=== PATIENT | female | born 1995 | race Caucasian/White ===

== ENCOUNTER 2019-05-17 20:58 | Emergency (ER) | payer MEDICAID ==
[~2019-05-17] VITALS: Ht 170.2 cm; Wt 102.5 kg
[~2019-05-17 20:58] MED LIST: PREN-96 PO
[2019-05-17] MEDS ORDERED: ALBUTEROL SULF 2.5 MG/0.5ML(0.5%) NEB SOLN NEB ONE ×3 (21:30→22:15)
[2019-05-17] MEDS ORDERED: IPRATROPIUM BROM 0.5 MG/2.5ML INH SOL NEB ONE ×3 (21:30→22:15)
[2019-05-17] MEDS ORDERED: IPRATROPIUM BROM 0.5 MG/2.5ML INH SOL ONE (22:06)
[2019-05-17] MEDS ORDERED: ALBUTEROL SULF 2.5 MG/0.5ML(0.5%) NEB SOLN ONE (22:06)
[2019-05-17 22:24] VITALS: BP 136/81
[2019-05-17] MEDS ORDERED: DexAMETHasone SOD PHOS 10MG/1ML VIAL INJ IM ONE (22:30)
[2019-05-17] MEDS ORDERED: ACETAMINOPHEN/CODEINE#3 (300/30mg) TAB PO ONE (22:30)
== END 2019-05-17 22:57 | disposition home or self-care (01) ==
LOC: ER 20:58
DX: J06.9 Acute upper respiratory infection, unspecified (principal); Z77.22 Contact with and (suspected) exposure to environmental tobacco smoke (acute) (chronic); Z88.0 Allergy status to penicillin
CPT/HCPCS: 81025; 94640; 96372; 99284; J1100; J7611; J7644

== ENCOUNTER 2020-12-16 17:50 | Emergency (ER) | payer MEDICAID ==
[~2020-12-16] VITALS: Ht 170.2 cm; Wt 98.4 kg
[2020-12-16 17:50] VITALS: BP 145/67
== END 2020-12-16 22:04 | disposition left against medical advice (07) ==
LOC: ER 17:50
DX: M79.641 Pain in right hand (principal); Z53.21 Procedure and treatment not carried out due to patient leaving prior to being seen by health care provider

== ENCOUNTER → 2022-01-06 | Outpatient (CLI) | payer MEDICAID ==
[2022-01-06 07:56] LABS: Basophils # (auto) 0 10 ^3/uL (0-0.2); Basophils % (auto) 0.4 % (0.0-2.0); Eosinophils # (auto) 0.1 10 ^3/uL (0-0.8); Eosinophils % (auto) 0.9 % (0.0-7.0); Hemoglobin 14.2 g/dL (12.2-16.2); Lymphocytes # (auto) 1.7 10 ^3/uL (0.4-5.4); Lymphocytes % (auto) 26.8 % (10.0-50.0); Mean Corpuscular Hemoglobin 29.8 pg (28.0-32.0); Mean Corpuscular Volume 87.7 fL (80.0-100.0); Monocytes # (auto) 0.4 10 ^3/uL (0-1.3); Monocytes % (auto) 6.1 % (0.0-12.0); Neutrophils # (auto) 4.1 10 ^3/uL (1.6-8.6); Neutrophils % (auto) 65.8 % (37.0-80.0); Red Blood Cells 4.78 10^6/uL (4.0-5.20); Red Cell Distribution Width 12.9 % (11.8-14.3); White Blood Cell 6.2 10^3/uL (4.4-10.8)
[2022-01-06 08:34] LABS: Alcohol, Urine < 3.0 mg/dL (0-10); Amphetamine Screen, Urine NEGATIVE (NEGATIVE); Barbiturate Scree,Urine NEGATIVE (NEGATIVE); Benzodiazephine Screen, Urine NEGATIVE (NEGATIVE); Cannabinoid Screen, Urine POSITIVE (NEGATIVE); Cocaine Screen, Urine NEGATIVE (NEGATIVE); Opiate Scree,Urine NEGATIVE (NEGATIVE); Phencyclidine Screen, Urine NEGATIVE (NEGATIVE)
[2022-01-07 07:07] LABS: RPR Non Reactive (Non Reactive)
== END | disposition home or self-care (01) ==
LOC: LAB 06:47
PROVIDERS: ATTEND Obstetrics & Gynecology
DX: Z34.80 Encounter for supervision of other normal pregnancy, unspecified trimester (principal); Z31.430 Encounter of female for testing for genetic disease carrier status for procreative management; Z20.01 Contact with and (suspected) exposure to intestinal infectious diseases due to Escherichia coli (E. coli); N39.0 Urinary tract infection, site not specified
CPT/HCPCS: 36415; 80307; 81025; 82951; 83036; 84112; 84144; 84702; 85025; 86592; 86703; 86762; 86850; 86900; 86901; 87086; 87340

== ENCOUNTER 2022-02-06 14:07 | Emergency (ER) | payer MEDICAID ==
[~2022-02-06] VITALS: Ht 170.2 cm; Wt 106.0 kg
[2022-02-06 15:52] LABS: Basophils # (auto) 0.1 10 ^3/uL (0-0.2); Basophils % (auto) 0.6 % (0.0-2.0); Eosinophils # (auto) 0.1 10 ^3/uL (0-0.8); Eosinophils % (auto) 0.9 % (0.0-7.0); Hematocrit 42.2 % (36.0-46.0); Hemoglobin 14.4 g/dL (12.2-16.2); Lymphocytes # (auto) 2.1 10 ^3/uL (0.4-5.4); Lymphocytes % (auto) 25.6 % (10.0-50.0); Mean Corpuscular Hemoglobin 29.5 pg (28.0-32.0); Mean Corpuscular Hgb Conc. 34.2 g/dL (32.0-36.0); Mean Corpuscular Volume 86.4 fL (80.0-100.0); Monocytes # (auto) 0.4 10 ^3/uL (0-1.3); Monocytes % (auto) 5.4 % (0.0-12.0); Neutrophils # (auto) 5.5 10 ^3/uL (1.6-8.6); Neutrophils % (auto) 67.5 % (37.0-80.0); Red Blood Cells 4.88 10^6/uL (4.0-5.20); Red Cell Distribution Width 12.4 % (11.8-14.3); White Blood Cell 8.2 10^3/uL (4.4-10.8)
[2022-02-06 16:04] LABS: Urine Bacteria NONE SEEN /hpf (None Seen); Urine Blood 3+ /uL (Negative); Urine Mucus FEW (None Seen); Urine Specific Gravity 1.016 (1.001-1.035); Urine WBC 3 /hpf (0 - 5)
[2022-02-06 16:10] LABS: Albumin 3.2 g/dL (3.4-5.0); Calcium 8.6 mg/dL (8.5-10.1); Potassium 3.6 mmol/L (3.5-5.1)
[2022-02-06 16:13] LABS: BUN/Creatinine Ratio 10.7; Bilirubin, Total 0.4 mg/dL (0.2-1.0); Total Protein 6.7 g/dL (6.4-8.2)
[2022-02-06 16:49] LABS: INR 0.97 (0.9-1.15); Partial Thromboplastin Time 27.2 sec (24.6-33.4)
[2022-02-06 18:45] VITALS: BP 118/64
== END 2022-02-06 19:12 | disposition home or self-care (01) ==
LOC: ER 14:11
DX: O20.0 Threatened abortion (principal); Z90.49 Acquired absence of other specified parts of digestive tract; Z3A.11 11 weeks gestation of pregnancy; Z88.0 Allergy status to penicillin; Z90.710 Acquired absence of both cervix and uterus
CPT/HCPCS: 36415; 76801; 80053; 81001; 84702; 85025; 85610; 85730; 86850; 86900; 86901

== ENCOUNTER 2022-03-31 07:50 | Inpatient (IN) | payer MEDICAID ==
[~2022-03-31] VITALS: Ht 170.2 cm; Wt 103.4 kg
[2022-03-31] MEDS ORDERED: PROMETHAZINE HCL 25 MG/ML 1ML IV PRN (08:15)
[2022-03-31] MEDS ORDERED: BUTORPHANOL TARTRATE 2 MG/1 ML VIAL IV PRN ×2 (08:15)
[2022-03-31] MEDS ORDERED: DERMOPLAST 60ML BOTTLE TOP PRN (08:15)
[2022-03-31] MEDS ORDERED: WITCH HAZEL-GLYCERIN PAD TOP PRN (08:15)
[2022-03-31] MEDS ORDERED: LIDOCAINE 2%HCL (LOCAL ANESTH.) INJ 10ml MDV IJ PRN (08:15)
[2022-03-31] MEDS ORDERED: PHISODERM TOP SOLN 240ML BTL TOP PRN (08:15)
[2022-03-31 09:01] LABS: Basophils # (auto) 0 10 ^3/uL (0-0.2); Basophils % (auto) 0.5 % (0.0-2.0); Eosinophils # (auto) 0 10 ^3/uL (0-0.8); Eosinophils % (auto) 0.4 % (0.0-7.0); Hematocrit 39.1 % (36.0-46.0); Hemoglobin 13.6 g/dL (12.2-16.2); Lymphocytes # (auto) 1.9 10 ^3/uL (0.4-5.4); Lymphocytes % (auto) 23.4 % (10.0-50.0); Mean Corpuscular Hemoglobin 30.5 pg (28.0-32.0); Mean Corpuscular Hgb Conc. 34.9 g/dL (32.0-36.0); Mean Corpuscular Volume 87.5 fL (80.0-100.0); Monocytes # (auto) 0.4 10 ^3/uL (0-1.3); Monocytes % (auto) 4.4 % (0.0-12.0); Neutrophils # (auto) 5.8 10 ^3/uL (1.6-8.6); Neutrophils % (auto) 71.3 % (37.0-80.0); Red Blood Cells 4.47 10^6/uL (4.0-5.20); Red Cell Distribution Width 13.1 % (11.8-14.3); White Blood Cell 8.1 10^3/uL (4.4-10.8)
[2022-03-31 09:05] LABS: Urine Bacteria NONE SEEN /hpf (None Seen); Urine Blood Negative /uL (Negative); Urine Specific Gravity 1.019 (1.001-1.035); Urine WBC 1 /hpf (0 - 5)
[2022-03-31 09:11] LABS: Albumin 2.6 g/dL (3.4-5.0); Calcium 8.2 mg/dL (8.5-10.1); Potassium 3.6 mmol/L (3.5-5.1)
[2022-03-31 09:12] LABS: Alcohol, Urine < 3.0 mg/dL (0-10); Amphetamine Screen, Urine NEGATIVE (NEGATIVE); Barbiturate Scree,Urine NEGATIVE (NEGATIVE); Benzodiazephine Screen, Urine NEGATIVE (NEGATIVE); Cannabinoid Screen, Urine NEGATIVE (NEGATIVE); Cocaine Screen, Urine NEGATIVE (NEGATIVE); Opiate Scree,Urine NEGATIVE (NEGATIVE); Phencyclidine Screen, Urine NEGATIVE (NEGATIVE)
[2022-03-31 09:13] LABS: BUN/Creatinine Ratio 12.2
[2022-03-31 09:14] LABS: INR 0.97 (0.9-1.15); Partial Thromboplastin Time 26.5 sec (24.6-33.4)
[2022-03-31 09:22] LABS: Bilirubin, Total 0.5 mg/dL (0.2-1.0); Total Protein 6.2 g/dL (6.4-8.2)
[2022-03-31] MEDS: miSOPROStol 50 MCG per PRE-CUT 1/2 TAB PO PRN ×2 (12:09→16:00)
[2022-03-31] MEDS: LACTATED RINGER'S 1,000 ML IV SCH ×2 (12:09→16:57)
[2022-03-31] MEDS ORDERED: CLINDAMYCIN 900MG IV 50 ML IV SCH (16:00)
[2022-03-31] MEDS ORDERED: ceFAZolin 1GM/50ML 50 ML IV SCH (16:00)
[2022-03-31] MEDS ORDERED: LACT. RINGERS/OXYTOCIN 20UNITS 500 ML IV ONE ×2 (17:30→18:00)
[2022-03-31] MEDS ORDERED: LACT. RINGERS/OXYTOCIN 20UNITS 1,000 ML IV ONE (19:15)
[2022-03-31 23:00] VITALS: BP 128/68
[2022-03-31] MEDS ORDERED: ONDANSETRON ODT 4 MG TAB PO PRN (23:30)
[2022-03-31] MEDS ORDERED: ACETAMINOPHEN 325 MG TAB PO PRN (23:30)
[2022-03-31] MEDS: CLINDAMYCIN 900MG IV 50 ML IV SCH (23:40)
[2022-04-01] MEDS: LACTATED RINGER'S 1,000 ML IV SCH ×2 (00:15→08:15)
[2022-04-01 03:30] VITALS: BP 118/57
[2022-04-01] MEDS: IBUPROFEN 600 MG TAB PO PRN ×2 (03:46→11:22)
[2022-04-01 07:00] VITALS: BP 136/72
[2022-04-01] MEDS: CLINDAMYCIN 900MG IV 50 ML IV SCH (07:45)
[2022-04-01 08:06] LABS: RPR Non Reactive (Non Reactive)
[2022-04-01] MEDS ORDERED: CARBOPROST TROMETHAMINE 250 MCG/1ML VIAL IM ONE (09:21)
[2022-04-01] MEDS ORDERED: METHYLERGONOVINE MALEATE 0.2 MG/ML AMP IM ONE (09:21)
[2022-04-01 11:00] VITALS: BP 146/70
[2022-04-01 12:15] VITALS: BP 146/70
== END 2022-04-01 12:15 | disposition home or self-care (01) | DRG 560 ==
LOC: LDRP 07:50
PROVIDERS: ADMIT Obstetrics & Gynecology; ATTEND Obstetrics & Gynecology
PROC: 10E0XZZ Delivery of Products of Conception, External Approach (ICD-10-PCS; principal; 2022-03-31)
DX: O36.4XX0 Maternal care for intrauterine death, not applicable or unspecified (principal); Z37.1 Single stillbirth; Z20.822 Contact with and (suspected) exposure to COVID-19; Z3A.18 18 weeks gestation of pregnancy; Z88.0 Allergy status to penicillin
CPT/HCPCS: 36415; 59409; 76805; 80053; 80307; 81001; 81002; 82947; 85025; 85610; 85730; 86592; 86850; 86900; 86901; 87426; 94760; 96360; 96365; 96366; G0378; J2590; J3490

== ENCOUNTER → 2023-01-20 | Outpatient (CLI) | payer MEDICAID ==
[2023-01-22 12:06] LABS: QuantiFERON-TB Gold Plus Negative (Negative)
== END | disposition home or self-care (01) ==
LOC: LAB 11:10
PROVIDERS: ATTEND Obstetrics & Gynecology
DX: Z34.80 Encounter for supervision of other normal pregnancy, unspecified trimester (principal); N76.0 Acute vaginitis; Z3A.00 Weeks of gestation of pregnancy not specified
CPT/HCPCS: 36415; 84436; 84443; 84480

== ENCOUNTER 2023-12-30 06:20 | Day surgery (SDC) | payer MEDICAID ==
[~2023-12-30] VITALS: Ht 170.2 cm; Wt 98.9 kg
[2023-12-30] MEDS ORDERED: LIDOCAINE HCL 2% TOP JELLY 5ML TOP ONE (06:46)
[2023-12-30] MEDS ORDERED: KETOROLAC TROMETH 30 MG/ML 1ML VIAL ONE (06:51)
[2023-12-30] MEDS ORDERED: DexAMETHasone SOD PHOS 10MG/1ML VIAL INJ ONE (06:51)
[2023-12-30] MEDS ORDERED: LIDOCAINE 2% (LOCAL ANESTH.) PF 5ml SDV ONE (06:51)
[2023-12-30] MEDS ORDERED: ROCURONIUM 10MG/ML 10ML VIAL IV ONE (06:51)
[2023-12-30] MEDS ORDERED: GLYCOPYRROLATE 0.2 MG/ML 1ML VIAL ONE (06:51)
[2023-12-30] MEDS ORDERED: PROPOFOL 10 MG/ML 20 ML IV ONE (06:51)
[2023-12-30] MEDS ORDERED: SUGAMMADEX 200mg/2ml Vial (100MG/ML) IV ONE (06:51)
[2023-12-30] MEDS ORDERED: KETAMINE 50mg/ML 1ml syringe ONE (06:52)
[2023-12-30] MEDS ORDERED: fentaNYL CITRATE 100 MCG/2 ML VL ONE (06:53)
[2023-12-30] MEDS ORDERED: CLINDAMYCIN 600MG IV 50 ML IV ONE (06:58)
[2023-12-30] MEDS: GABAPENTIN 400 MG CAP PO ONE (07:00)
[2023-12-30] MEDS: CELECOXIB 100 MG CAP PO ONE (07:00)
[2023-12-30] MEDS: ACETAMINOPHEN IV 1000 MG/100ML (10MG/ML) IV ONE (07:00)
[2023-12-30] MEDS ORDERED: CELECOXIB 100 MG CAP ONE (07:04)
[2023-12-30] MEDS ORDERED: GABAPENTIN 400 MG CAP ONE (07:04)
[2023-12-30] MEDS ORDERED: ACETAMINOPHEN IV 100 ML IV ONE (07:05)
[2023-12-30] MEDS ORDERED: LACTATED RINGER'S 1,000 ML IV SCH (07:15)
[2023-12-30] MEDS ORDERED: ZOFR4T PO (07:15)
[2023-12-30] MEDS ORDERED: ONDANSETRON HCL 4 MG/2 ML VIAL IV PRN (07:15)
[2023-12-30] MEDS ORDERED: HYDR-4902 PO (07:15)
[2023-12-30] MEDS ORDERED: CELECOXIB 100 MG CAP PO ONE ×2 (07:45→09:00)
[2023-12-30] MEDS ORDERED: GABAPENTIN 400 MG CAP PO ONE ×2 (07:45→09:00)
[2023-12-30] MEDS ORDERED: ACETAMINOPHEN IV 1000 MG/100ML (10MG/ML) IV ONE ×2 (07:45→09:00)
[2023-12-30] MEDS: LIDOCAINE W/ EPINEPHRINE 1% 20ML VIAL ONE (07:59)
[2023-12-30] MEDS: BUPIVACAINE 0.25% INJ 50ML VIAL ONE (07:59)
[2023-12-30 08:06] VITALS: TEMP 97; O2SAT 100
[2023-12-30] MEDS ORDERED: FLUMAZENIL 0.1 MG/ML INJ 10ML MDV IV PRN (08:15)
[2023-12-30] MEDS ORDERED: hydrALAZINE HCL 20 MG/ML VL IV PRN (08:15)
[2023-12-30] MEDS ORDERED: fentaNYL CITRATE 100 MCG/2 ML VL IV PRN (08:15)
[2023-12-30] MEDS ORDERED: NALOXONE HCL 0.4 MG/ML VIAL IV PRN (08:15)
[2023-12-30] MEDS ORDERED: oxyCODONE HCL 5MG TAB PO PRN (08:15)
[2023-12-30] MEDS ORDERED: ePHEDrine SULFATE 50 MG/ML AMP IV PRN (08:15)
[2023-12-30] MEDS: ONDANSETRON HCL 4 MG/2 ML VIAL IV PRN (08:38)
[2023-12-30] MEDS: HYDROmorphone HCL 2 MG/ML VL/or syr IV PRN (08:41)
[2023-12-30 09:21] VITALS: BP 111/53; PULSE 47; RESP 12; O2SAT 95
[2023-12-30 09:37] LABS: Basophils # (auto) 0 10 ^3/uL (0-0.2); Basophils % (auto) 0.5 % (0.0-2.0); Eosinophils # (auto) 0.1 10 ^3/uL (0-0.8); Eosinophils % (auto) 0.9 % (0.0-7.0); Hemoglobin 13.8 g/dL (12.2-16.2); Lymphocytes # (auto) 2.3 10 ^3/uL (0.4-5.4); Lymphocytes % (auto) 23.1 % (10.0-50.0); Mean Corpuscular Hgb Conc. 33.8 g/dL (32.0-36.0); Mean Corpuscular Volume 88.8 fL (80.0-100.0); Monocytes # (auto) 0.2 10 ^3/uL (0-1.3); Monocytes % (auto) 2.1 % (0.0-12.0); Neutrophils # (auto) 7.2 10 ^3/uL (1.6-8.6); Neutrophils % (auto) 73.4 % (37.0-80.0); Red Blood Cells 4.61 10^6/uL (4.0-5.20); Red Cell Distribution Width 13.3 % (11.8-14.3); White Blood Cell 9.8 10^3/uL (4.4-10.8)
== END 2023-12-30 09:53 | disposition home or self-care (01) ==
LOC: EDUNIT# → SUR 06:20
PROVIDERS: ATTEND Obstetrics & Gynecology
DX: Z30.2 Encounter for sterilization (principal); E66.01 Morbid (severe) obesity due to excess calories; E03.9 Hypothyroidism, unspecified; Z68.41 Body mass index [BMI] 40.0-44.9, adult; Z90.49 Acquired absence of other specified parts of digestive tract; Z88.0 Allergy status to penicillin
CPT/HCPCS: 36415; 58671; 85025; 86850; 86900; 86901; A4264; J0131; J1100; J1170; J1885; J2001; J2405; J2704; J3490